=== PATIENT | male | born 1975 | race Hispanic/Latino ===

== ENCOUNTER 2024-10-14 05:47 | Observation (INO) | payer MEDICAID ==
[~2024-10-14] VITALS: Ht 170.2 cm; Wt 114.7 kg
[2024-10-14 06:26] LABS: BASO % 0.2 % (0.0-1.0); EOS % 0.5 % (0.0-3.0); HEMATOCRIT 47.5 % (42.0-52.0); HEMOGLOBIN 15.8 g/dl (13.5-17.5); LYMPH # 1.3 10^3/uL (1.5-5.0); LYMPH % 21.8 % (24.0-44.0); MEAN CORPUSCULAR HEMOGLOBIN 28.8 pg (27.0-33.0); MEAN CORPUSCULAR HGB CONC 33.3 g/dl (32.0-36.5); MEAN CORPUSCULAR VOLUME 86.5 fl (80.0-96.0); MONO # 0.2 10^3/uL (0.0-0.8); MONO % 4.2 % (2.0-8.0); NEUTROPHILS # 4.2 10^3/uL (1.5-8.5); NEUTROPHILS % 72.8 % (36.0-66.0); PLATELET COUNT, AUTOMATED 200 10^3/uL (150-450); RED BLOOD COUNT 5.49 10^6/uL (4.30-6.10); WHITE BLOOD COUNT 5.7 10^3/uL (4.0-10.0)
[2024-10-14] MEDS: ONDANSETRON 4MG 2ML VIAL IV STA (06:33)
[2024-10-14 06:45] LABS: LIPASE 27 U/L (12-53)
[2024-10-14 06:48] LABS: ALBUMIN 3.7 G/DL (3.2-5.2); ALKALINE PHOSPHATASE 118 U/L (40-129); ALT/SGPT 23 U/L (7.0-40); AST/SGOT 19 U/L (<34); BILIRUBIN,DIRECT 0.3 MG/DL (<0.4); BILIRUBIN,TOTAL 0.7 MG/DL (0.3-1.2); BLOOD UREA NITROGEN 14 MG/DL (9-23); CALCIUM LEVEL 9.5 MG/DL (8.5-10.1); CARBON DIOXIDE LEVEL 22 MMOL/L (20-31); CHLORIDE LEVEL 105 MMOL/L (98-107); CREATININE FOR GFR 1.01 MG/DL (0.70-1.30); GLOMERULAR FILTRATION RATE > 60.0 (>56); GLUCOSE, FASTING 180 MG/DL (60-100); POTASSIUM SERUM 4.4 MMOL/L (3.5-5.1); SODIUM LEVEL 136 MMOL/L (136-145); TOTAL PROTEIN 7.6 G/DL (5.7-8.2)
[2024-10-14 07:32] LABS: CPK CREATINE PHOSPHOKINASE 118 U/L (46-171); MB/CK RELATIVE INDEX 0.84 (< OR =4)
[2024-10-14] MEDS ORDERED: ISOVUE-370 76% 100ML VIAL As Ordered ONE (07:34)
[2024-10-14] MEDS ORDERED: ELIQ5TAB PO (09:42)
[2024-10-14] MEDS ORDERED: JARD1TAB PO (09:42)
[2024-10-14] MEDS ORDERED: METO1TAB33 PO (09:42)
[2024-10-14] MEDS ORDERED: ATOR80TA59 PO (09:42)
[2024-10-14] MEDS ORDERED: ENTR1TAB7 PO (09:42)
[2024-10-14] MEDS ORDERED: HOME MED LIST COMPLETE! XX SCH (09:45)
[2024-10-14] MEDS: ASPIRIN 81MG CHEW TABLET PO ONE (12:07)
[2024-10-14] MEDS: ATORVASTATIN 20 MG TAB PO SCH (12:07)
[2024-10-14] MEDS: APIXABAN 5 MG TAB (ELIQUIS) PO ONE (12:08)
[2024-10-14 14:26] LABS: MAGNESIUM LEVEL 1.9 MG/DL (1.8-2.4)
[2024-10-14 17:26] VITALS: BP 147/99; TEMP 97.9; O2SAT 98
[2024-10-14] MEDS: CLOPIDOGREL 75 MG TAB PO ONE (17:46)
[2024-10-14 20:07] VITALS: BP 149/90; TEMP 97.9; O2SAT 99
[2024-10-14] MEDS: APIXABAN 5 MG TAB (ELIQUIS) PO SCH (20:41)
[2024-10-14] MEDS: PANTOPRAZOLE 40MG VIAL IV SCH (20:41)
[2024-10-14 23:11] VITALS: BP 150/83; TEMP 98; O2SAT 94
[2024-10-15 03:37] VITALS: BP 146/86; TEMP 98.1; O2SAT 95
[2024-10-15 04:51] LABS: HEMATOCRIT 46.6 % (42.0-52.0); HEMOGLOBIN 15.3 g/dl (13.5-17.5); MEAN CORPUSCULAR HEMOGLOBIN 28.8 pg (27.0-33.0); MEAN CORPUSCULAR HGB CONC 32.8 g/dl (32.0-36.5); MEAN CORPUSCULAR VOLUME 87.6 fl (80.0-96.0); PLATELET COUNT, AUTOMATED 202 10^3/uL (150-450); RED BLOOD COUNT 5.32 10^6/uL (4.30-6.10); WHITE BLOOD COUNT 5.8 10^3/uL (4.0-10.0)
[2024-10-15 05:14] LABS: CALCIUM LEVEL 9.3 MG/DL (8.5-10.1); CHOLESTEROL RISK RATIO 4.29 (<5); CREATININE FOR GFR 1.36 MG/DL (0.70-1.30); GLOMERULAR FILTRATION RATE 58.8 (>56); HDL CHOLESTEROL 30.3 MG/DL (>40); LDL CHOLESTEROL 75.7 MG/DL (<100); NON-HDL-C 99.7 MG/DL
[2024-10-15 05:31] LABS: HEMOGLOBIN A1c 5.8 % (4.0-6.0)
[2024-10-15 08:00] VITALS: BP 140/92; TEMP 98.1; O2SAT 95
[2024-10-15] MEDS: CLOPIDOGREL 75 MG TAB PO SCH (08:54)
[2024-10-15] MEDS: ASPIRIN 81MG ENTERIC TABLET PO SCH (08:54)
[2024-10-15] MEDS: NS 1,000 ML IV SCH (09:25)
[2024-10-15] MEDS ORDERED: CLOP75TA2 PO (11:18)
[2024-10-15] MEDS ORDERED: ASPI81TAEC PO (11:18)
[2024-10-15] MEDS ORDERED: MECL-86 PO (11:39)
[2024-10-15 12:00] VITALS: BP 146/89; TEMP 98.5; O2SAT 94
[2024-10-15] MEDS ORDERED: METO1TAB33 PO (12:46)
[2024-10-15] MEDS ORDERED: ATOR80TA59 PO (12:46)
[2024-10-15] MEDS ORDERED: ELIQ5TAB PO (12:46)
[2024-10-15] MEDS ORDERED: XARE20TA PO (13:38)
== END 2024-10-15 14:02 | disposition home or self-care (01) ==
LOC: M ED 05:47 → M ED INP 16:03 → M PCU 17:22
PROVIDERS: ADMIT Internal Medicine; ATTEND Internal Medicine
DX: R42 Dizziness and giddiness (principal); H49.9 Unspecified paralytic strabismus; R26.81 Unsteadiness on feet; Z91.148 Patient's other noncompliance with medication regimen for other reason; R11.2 Nausea with vomiting, unspecified; I11.0 Hypertensive heart disease with heart failure; I50.9 Heart failure, unspecified; Z86.73 Personal history of transient ischemic attack (TIA), and cerebral infarction without residual deficits; I72.5 Aneurysm of other precerebral arteries; Z86.79 Personal history of other diseases of the circulatory system; I48.91 Unspecified atrial fibrillation; Z98.890 Other specified postprocedural states; Z95.828 Presence of other vascular implants and grafts; Z79.899 Other long term (current) drug therapy; Z79.82 Long term (current) use of aspirin; Z79.01 Long term (current) use of anticoagulants; Z79.02 Long term (current) use of antithrombotics/antiplatelets
CPT/HCPCS: 36415; 70450; 70496; 70498; 71045; 80047; 80048; 80061; 80076; 82550; 82553; 83036; 83690; 83735; 84484; 85025; 85027; 93005; 93041; 96374; 96375; 96376; 97116; 97161; 99285; J2405; J2470; Q9967

== ENCOUNTER → 2024-12-16 | Outpatient (REF) | payer MEDICAID ==
[~2024-12-16] MED LIST: ASPI81TAEC PO; ATOR80TA59 PO; CLOP75TA2 PO; ELIQ5TAB PO; ENTR1TAB7 PO; JARD1TAB PO; MECL-86 PO; METO1TAB33 PO; XARE20TA PO
[2024-12-16 14:44] LABS: PSA SCREENING 0.41 NG/ML (< 4.00)
[2024-12-16 14:47] LABS: ALBUMIN 3.9 G/DL (3.2-5.2); BILIRUBIN,DIRECT 0.3 MG/DL (<0.4); BILIRUBIN,TOTAL 0.8 MG/DL (0.3-1.2); CHOLESTEROL RISK RATIO 5.44 (<5); HDL CHOLESTEROL 34.5 MG/DL (>40); LDL CHOLESTEROL 113.5 MG/DL (<100); NON-HDL-C 153.5 MG/DL; TOTAL PROTEIN 7.9 G/DL (5.7-8.2)
[2024-12-16 15:16] LABS: HEMOGLOBIN A1c 6.2 % (4.0-6.0)
== END ==
LOC: M LAB REF 13:11
PROVIDERS: ATTEND Nurse Practitioner Family
DX: Z12.5 Encounter for screening for malignant neoplasm of prostate (principal); E66.9 Obesity, unspecified

== ENCOUNTER 2025-02-11 11:54 | Inpatient (IN) | payer MEDICAID, SELFPAY ==
[~2025-02-11] VITALS: Ht 167.6 cm; Wt 115.5 kg
[~2025-02-11 11:54] MED LIST changes: +OXYM15SP2
[2025-02-11] MEDS ORDERED: AMLO1TAB25 (12:06)
[2025-02-11] MEDS: NS (Normal Saline) 0.9% 1,000 ML IV ONE (13:20)
[2025-02-11] MEDS: OXYMETAZOLINE 0.05% NASAL SPRAY ONE (13:49)
[2025-02-11 14:07] LABS: BASO % 0.4 % (0.0-1.0); EOS # 0.1 10^3/uL (0.0-0.5); EOS % 1.2 % (0.0-3.0); HEMATOCRIT 33.1 % (42.0-52.0); HEMOGLOBIN 11.1 g/dl (13.5-17.5); LYMPH # 1.5 10^3/uL (1.5-5.0); LYMPH % 21.7 % (24.0-44.0); MEAN CORPUSCULAR HEMOGLOBIN 30.3 pg (27.0-33.0); MEAN CORPUSCULAR HGB CONC 33.5 g/dl (32.0-36.5); MEAN CORPUSCULAR VOLUME 90.4 fl (80.0-96.0); MONO # 0.4 10^3/uL (0.0-0.8); MONO % 6.4 % (2.0-8.0); NEUTROPHILS # 4.8 10^3/uL (1.5-8.5); NEUTROPHILS % 69.9 % (36.0-66.0); PLATELET COUNT, AUTOMATED 250 10^3/uL (150-450); RED BLOOD COUNT 3.66 10^6/uL (4.30-6.10); WHITE BLOOD COUNT 6.9 10^3/uL (4.0-10.0)
[2025-02-11 14:17] LABS: INR 1.33; PARTIAL THROMBOPLASTIN TIME 28.9 SECONDS (24.8-34.2); PROTHROMBIN TIME 16.8 SECONDS (12.5-14.5)
[2025-02-11 14:32] LABS: BLOOD UREA NITROGEN 27 MG/DL (9-23); CALCIUM LEVEL 8.4 MG/DL (8.5-10.1); CARBON DIOXIDE LEVEL 25 MMOL/L (20-31); CHLORIDE LEVEL 107 MMOL/L (98-107); CREATININE FOR GFR 1.32 MG/DL (0.70-1.30); GLOMERULAR FILTRATION RATE > 60.0 (>56); GLUCOSE, FASTING 147 MG/DL (60-100); POTASSIUM SERUM 5.5 MMOL/L (3.5-5.1); SODIUM LEVEL 138 MMOL/L (136-145)
[2025-02-11 16:18] LABS: HEMATOCRIT 28.5 % (42.0-52.0); HEMOGLOBIN 9.5 g/dl (13.5-17.5)
[2025-02-11] MEDS ORDERED: ACETAMINOPHEN 325 MG TAB PO PRN (16:20)
[2025-02-11] MEDS ORDERED: MECL-86 PO (16:35)
[2025-02-11] MEDS ORDERED: APAP325T4 PO (16:35)
[2025-02-11 16:49] LABS: ALBUMIN 3.6 G/DL (3.2-5.2); ALKALINE PHOSPHATASE 75 U/L (40-129); ALT/SGPT 24 U/L (7.0-40); AST/SGOT 21 U/L (<34); BILIRUBIN,DIRECT 0.2 MG/DL (<0.4); BILIRUBIN,TOTAL 0.7 MG/DL (0.3-1.2); TOTAL PROTEIN 6.8 G/DL (5.7-8.2)
[2025-02-11] MEDS: PANTOPRAZOLE 40MG VIAL IV SCH (16:57)
[2025-02-11] MEDS: NS (Normal Saline) 0.9% 1,000 ML IV SCH (16:57)
[2025-02-11] MEDS ORDERED: HOME MED LIST COMPLETE! XX SCH (17:10)
[2025-02-11] MEDS ORDERED: MECLIZINE 25 MG TABLET PO PRN (18:20)
[2025-02-11 20:00] VITALS: BP 124/61; PULSE 78; TEMP 97.5; O2SAT 99
[2025-02-11 20:15] LABS: HEMATOCRIT 28.3 % (42.0-52.0); HEMOGLOBIN 9.2 g/dl (13.5-17.5); MEAN CORPUSCULAR HEMOGLOBIN 29.2 pg (27.0-33.0); MEAN CORPUSCULAR HGB CONC 32.5 g/dl (32.0-36.5); MEAN CORPUSCULAR VOLUME 89.8 fl (80.0-96.0); PLATELET COUNT, AUTOMATED 166 10^3/uL (150-450); RED BLOOD COUNT 3.15 10^6/uL (4.30-6.10); WHITE BLOOD COUNT 6.4 10^3/uL (4.0-10.0)
[2025-02-11 20:47] LABS: ALBUMIN 3.2 G/DL (3.2-5.2); ALKALINE PHOSPHATASE 66 U/L (40-129); ALT/SGPT 18 U/L (7.0-40); AST/SGOT 12 U/L (<34); BILIRUBIN,TOTAL 0.6 MG/DL (0.3-1.2); BLOOD UREA NITROGEN 29 MG/DL (9-23); CALCIUM LEVEL 8.3 MG/DL (8.5-10.1); CARBON DIOXIDE LEVEL 25 MMOL/L (20-31); CHLORIDE LEVEL 110 MMOL/L (98-107); CREATININE FOR GFR 1.16 MG/DL (0.70-1.30); GLOMERULAR FILTRATION RATE > 60.0 (>56); GLUCOSE, FASTING 139 MG/DL (60-100); POTASSIUM SERUM 4.3 MMOL/L (3.5-5.1); SODIUM LEVEL 143 MMOL/L (136-145); TOTAL PROTEIN 6.1 G/DL (5.7-8.2)
[2025-02-11] MEDS: ATORVASTATIN 20 MG TAB PO SCH (21:04)
[2025-02-11 23:45] VITALS: BP 120/74; TEMP 98; O2SAT 96
[2025-02-12] VITALS (10 sets, daily range): BP systolic 112–143; BP diastolic 79–92; TEMP 97.6–98.8; O2SAT 97–99
[2025-02-12 05:10] LABS: HEMOGLOBIN 8.6 g/dl (13.5-17.5); MEAN CORPUSCULAR HEMOGLOBIN 29.8 pg (27.0-33.0); MEAN CORPUSCULAR HGB CONC 33.1 g/dl (32.0-36.5); PLATELET COUNT, AUTOMATED 161 10^3/uL (150-450); RED BLOOD COUNT 2.89 10^6/uL (4.30-6.10); WHITE BLOOD COUNT 5.5 10^3/uL (4.0-10.0)
[2025-02-12 05:42] LABS: ALKALINE PHOSPHATASE 61 U/L (40-129); ALT/SGPT 14 U/L (7.0-40); AST/SGOT 10 U/L (<34); BILIRUBIN,TOTAL 0.6 MG/DL (0.3-1.2); BLOOD UREA NITROGEN 25 MG/DL (9-23); CALCIUM LEVEL 8.2 MG/DL (8.5-10.1); CARBON DIOXIDE LEVEL 24 MMOL/L (20-31); CHLORIDE LEVEL 112 MMOL/L (98-107); CREATININE FOR GFR 1.12 MG/DL (0.70-1.30); GLOMERULAR FILTRATION RATE > 60.0 (>56); GLUCOSE, FASTING 103 MG/DL (60-100); POTASSIUM SERUM 4.1 MMOL/L (3.5-5.1); SODIUM LEVEL 143 MMOL/L (136-145); TOTAL PROTEIN 5.7 G/DL (5.7-8.2)
[2025-02-12 14:28] LABS: HEMATOCRIT 27.9 % (42.0-52.0); HEMOGLOBIN 9.2 g/dl (13.5-17.5); MEAN CORPUSCULAR HEMOGLOBIN 29.6 pg (27.0-33.0); MEAN CORPUSCULAR VOLUME 89.7 fl (80.0-96.0); PLATELET COUNT, AUTOMATED 147 10^3/uL (150-450); RED BLOOD COUNT 3.11 10^6/uL (4.30-6.10); WHITE BLOOD COUNT 4.9 10^3/uL (4.0-10.0)
== END 2025-02-12 17:19 | disposition home or self-care (01) | DRG 115 ==
LOC: M ED 11:54 → M ED INP 16:17 → M PCU 23:41
PROVIDERS: ADMIT Internal Medicine; ATTEND Internal Medicine
PROC: 2Y41X5Z Packing of Nasal Region using Packing Material (ICD-10-PCS; principal; 2025-02-11)
PROC: 30233N1 Transfusion of Nonautologous Red Blood Cells into Peripheral Vein, Percutaneous Approach (ICD-10-PCS; 2025-02-11)
DX: R04.0 Epistaxis (principal); I13.0 Hypertensive heart and chronic kidney disease with heart failure and stage 1 through stage 4 chronic kidney disease, or unspecified chronic kidney disease; I95.9 Hypotension, unspecified; I48.92 Unspecified atrial flutter; D62 Acute posthemorrhagic anemia; I50.32 Chronic diastolic (congestive) heart failure; I48.91 Unspecified atrial fibrillation; E87.5 Hyperkalemia; N18.30 Chronic kidney disease, stage 3 unspecified; R42 Dizziness and giddiness; I25.10 Atherosclerotic heart disease of native coronary artery without angina pectoris; E78.5 Hyperlipidemia, unspecified; H50.9 Unspecified strabismus; Z87.891 Personal history of nicotine dependence; Z86.73 Personal history of transient ischemic attack (TIA), and cerebral infarction without residual deficits; Z79.02 Long term (current) use of antithrombotics/antiplatelets; Z79.899 Other long term (current) drug therapy; Z79.01 Long term (current) use of anticoagulants

== ENCOUNTER → 2025-05-12 | Outpatient (REF) | payer MEDICAID, SELFPAY ==
[~2025-05-12] MED LIST changes: +AMLO1TAB25; +APAP325T4 PO
[2025-05-12 18:45] LABS: BASO # 0.0 10^3/uL (0.0-0.2); BASO % 0.2 % (0.0-1.0); EOS # 0.2 10^3/uL (0.0-0.5); EOS % 4.2 % (0.0-3.0); LYMPH # 1.5 10^3/uL (1.5-5.0); LYMPH % 35.6 % (24.0-44.0); MONO # 0.4 10^3/uL (0.0-0.8); MONO % 9.3 % (2.0-8.0); NEUTROPHILS # 2.1 10^3/uL (1.5-8.5); NEUTROPHILS % 50.7 % (36.0-66.0); PLATELET COUNT, AUTOMATED 213 10^3/uL (150-450)
[2025-05-12 18:51] LABS: CALCIUM LEVEL 9.2 MG/DL (8.5-10.1); CARBON DIOXIDE LEVEL 27 MMOL/L (20-31); CHLORIDE LEVEL 101 MMOL/L (98-107); CHOLESTEROL LEVEL 101 MG/DL (<200); CHOLESTEROL RISK RATIO 3.59 (<5); CREATININE FOR GFR 1.26 MG/DL (0.70-1.30); GLOMERULAR FILTRATION RATE 68.6 (>56); IRON (FE) 54 UG/DL (65-175); LDL CHOLESTEROL 46.7 MG/DL (<100); NON-HDL-C 72.9 MG/DL; POTASSIUM SERUM 4.3 MMOL/L (3.5-5.1); SODIUM LEVEL 140 MMOL/L (136-145); TRIGLYCERIDES LEVEL 131 MG/DL (<150)
[2025-05-12 18:52] LABS: PERCENT SATURATION 17.8 % (19.7-50.0)
[2025-05-12 19:00] LABS: ESTIMATED AVERAGE GLUCOSE 126.0 MG/DL (60-110)
[2025-05-12 19:18] LABS: HIV 1&2 SCREEN NEGATIVE (NEGATIVE)
[2025-05-12 19:27] LABS: HEPATITIS C VIRUS ABY INDEX 0.06 INDEX (<0.8)
== END ==
LOC: M LAB REF 17:55
PROVIDERS: ATTEND Nurse Practitioner Family
DX: R73.03 Prediabetes (principal); E78.00 Pure hypercholesterolemia, unspecified; D64.9 Anemia, unspecified

== ENCOUNTER → 2025-05-27 | Outpatient (CLI) | payer MEDICAID, SELFPAY ==
[2025-05-27 11:06] LABS: INR 2.24
== END ==
LOC: M LAB 10:17
PROVIDERS: ATTEND Physician Assistant
DX: I48.91 Unspecified atrial fibrillation (principal); Z79.01 Long term (current) use of anticoagulants

== ENCOUNTER → 2025-06-10 | Outpatient (CLI) | payer MEDICAID | LOC: M CARPUL 08:22 | PROVIDERS: ATTEND Internal Medicine Cardiovascular Disease | DX: I50.22 Chronic systolic (congestive) heart failure (principal); I36.1 Nonrheumatic tricuspid (valve) insufficiency ==

== ENCOUNTER → 2025-06-13 | Outpatient (CLI) | payer MEDICAID, SELFPAY ==
[2025-06-13 08:09] LABS: INR 2.07
== END ==
LOC: M LAB 07:23
PROVIDERS: ATTEND Registered Nurse
DX: I48.91 Unspecified atrial fibrillation (principal); Z79.01 Long term (current) use of anticoagulants

== ENCOUNTER → 2025-06-24 | Outpatient (CLI) | payer MEDICAID | LOC: M SLEEP HO 11:47 | PROVIDERS: ATTEND Nurse Practitioner Family | DX: G47.33 Obstructive sleep apnea (adult) (pediatric) (principal); R29.818 Other symptoms and signs involving the nervous system ==

== ENCOUNTER → 2025-07-13 | Outpatient (CLI) | payer MEDICAID ==
[2025-07-13 13:53] LABS: INR 2.15
== END ==
LOC: M LAB 12:06
PROVIDERS: ATTEND Physician Assistant
DX: I48.91 Unspecified atrial fibrillation (principal)

== ENCOUNTER → 2025-08-09 | Outpatient (CLI) | payer MEDICAID ==
[2025-08-09 09:19] LABS: INR 1.85
== END ==
LOC: M LAB 07:49
PROVIDERS: ATTEND Physician Assistant
DX: I48.91 Unspecified atrial fibrillation (principal)

== ENCOUNTER → 2025-09-15 | Outpatient (CLI) | payer MEDICAID ==
[2025-09-15 08:54] LABS: INR 2.15
== END ==
LOC: M LAB 08:08
PROVIDERS: ATTEND Internal Medicine Cardiovascular Disease
DX: I48.91 Unspecified atrial fibrillation (principal)

== ENCOUNTER → 2025-10-12 | Outpatient (CLI) | payer MEDICAID, SELFPAY ==
[2025-10-12 14:40] LABS: INR 1.73
== END ==
LOC: M LAB 13:12
PROVIDERS: ATTEND Physician Assistant
DX: I48.91 Unspecified atrial fibrillation (principal)

== ENCOUNTER → 2025-10-19 | Outpatient (CLI) | payer MEDICAID ==
[2025-10-19 17:11] LABS: INR 3.39
== END ==
LOC: M LAB 16:02
PROVIDERS: ATTEND Physician Assistant
DX: I48.91 Unspecified atrial fibrillation (principal); Z79.01 Long term (current) use of anticoagulants